=== PATIENT | male | born 1995 | race Two or more races ===

== ENCOUNTER 2022-07-27 15:44 | Emergency (ER) | payer OTHER ==
[~2022-07-27] VITALS: Ht 167.6 cm; Wt 78.0 kg
[2022-07-27 16:08] VITALS: BP 133/83
== END 2022-07-27 20:30 | disposition left against medical advice (07) ==
LOC: ER 15:44
DX: Z53.21 Procedure and treatment not carried out due to patient leaving prior to being seen by health care provider (principal)

== ENCOUNTER 2022-07-29 16:01 | Emergency (ER) | payer MEDICAID, OTHER ==
[~2022-07-29] VITALS: Ht 172.7 cm; Wt 71.0 kg
[2022-07-29 16:05] VITALS: BP 122/76
[2022-07-29] MEDS ORDERED: BACITRACIN ZINC OINT UDPKT TOP ONE (16:45)
[2022-07-29] MEDS ORDERED: LIDOCAINE HCL/PF 1% 10 MG/ML 5ML VIAL INFIL ONE (16:45)
[2022-07-29] MEDS ORDERED: SULF1TAB48 MT ×3 (18:09→18:32)
== END 2022-07-29 18:41 | disposition home or self-care (01) ==
LOC: ER 16:01
DX: N61.1 Abscess of the breast and nipple (principal)
CPT/HCPCS: 10060; 99283; J3490

== ENCOUNTER 2022-09-24 10:52 | Emergency (ER) | payer MEDICAID ==
[~2022-09-24] VITALS: Ht 175.3 cm; Wt 68.0 kg
[~2022-09-24 10:52] MED LIST: SULF1TAB48 MT
[2022-09-24 11:05] VITALS: BP 116/72
== END 2022-09-24 18:48 | disposition left against medical advice (07) ==
LOC: ER 11:20
DX: Z53.21 Procedure and treatment not carried out due to patient leaving prior to being seen by health care provider (principal); Z76.0 Encounter for issue of repeat prescription; R56.9 Unspecified convulsions; F41.9 Anxiety disorder, unspecified; H91.3 Deaf nonspeaking, not elsewhere classified

== ENCOUNTER 2025-05-29 15:38 | Emergency (ER) | payer MEDICAID ==
[~2025-05-29] VITALS: Ht 177.8 cm; Wt 85.0 kg
[2025-05-29 15:41] VITALS: O2SAT 98
[2025-05-29] MEDS: SODIUM CHLORIDE 0.9% 1,000 ML IV ONE (16:30)
[2025-05-29] MEDS: LORAZEPAM 2MG/ML UD SYRINGE IV NR (16:34)
[2025-05-29 17:18] LABS: BASOPHILS % 0.4 % (0.0-2.0); EOSINOPHILS % 0.9 % (0.0-5.0); HEMATOCRIT. 41.1 % (36.0-48.0); HEMOGLOBIN. 13.6 g/dL (12.0-16.0); LYMPHOCYTES % 16.3 % (20.0-50.0); MEAN PLATELET VOLUME 8.1 fl (7.4-10.4); MONOCYTES % 7.4 % (2.0-8.0); NEUTROPHILS % 75.0 % (40.0-76.0); PLATELET 324 x1000/uL (130-400); RED BLOOD CELL COUNT 4.65 mill/uL (4.2-5.4); RED CELL DISTRIBUTION WIDTH 16.3 % (11.6-14.6)
[2025-05-29 17:33] LABS: CREATININE 1.0 mg/dL (0.6-1.0); UREA NITROGEN BLOOD 11 mg/dL (9-23)
[2025-05-29 17:34] LABS: ETHANOL BLOOD < 10 mg/dL (<10)
[2025-05-29 17:35] LABS: ASPARTATE AMINOTRANSFERASE 77 IU/L (<34); BILIRUBIN DIRECT 0.1 mg/dL (<=3.0)
[2025-05-29 17:36] LABS: BILIRUBIN TOTAL 0.5 mg/dL (0.1-1.0); PROTEIN TOTAL 6.7 g/dL (6.0-8.3)
[2025-05-29] MEDS: LORAZEPAM 1MG TABLET PO STA (17:48)
[2025-05-29 19:30] VITALS: TEMP 36.7
[2025-05-29 20:45] VITALS: BP 132/64; PULSE 86; RESP 16; O2SAT 99
== END 2025-05-29 21:04 | disposition home or self-care (01) ==
LOC: ER 15:38
DX: R42 Dizziness and giddiness (principal); F12.10 Cannabis abuse, uncomplicated; Z86.59 Personal history of other mental and behavioral disorders
CPT/HCPCS: 80076; 80048; 80320; 83735; 85025; 36415; 99283; J7030; J2060; G0480